=== PATIENT | female | born 1995 | race Caucasian/White ===

== ENCOUNTER 2016-09-12 10:13 | Emergency (ER) | payer BC ==
[2016-09-12 10:23] VITALS: BP 107/90
[2016-09-12] MEDS ORDERED: methylPREDNISolone 125 MG* 2 ML VIAL IM ONE (12:01)
[2016-09-12] MEDS ORDERED: Famotidine TAB* 20 MG PO ONE (12:01)
--- NOTE | 2016-09-12 12:10 | UC ---
Skin Complaint HPI - HPI Summary HPI Summary: Patient is having a allergic reaction to amoxicillin, rash that is itchy all over her body. no respiratory distres. no facial swelling. - History of Current Complaint Chief Complaint: UCSkin Time Seen by Provider: 09/12/16 11:57 Stated Complaint: SKIN COMPLAINT Hx Obtained From: Patient Hx Last Menstrual Period: 09/08/16 ?: No Onset/Duration: Sudden Onset, Lasting Hours Skin Exposure Onset/Duration: Hours Ago Timing: Constant Onset Severity: Moderate Current Severity: Moderate Pain Intensity: 4 Pain Scale Used: 0-10 Numeric Location: Diffuse, Generalized - all over Character: Swelling, Pruritus, Hives, Raised Aggravating: Nothing Alleviating: Nothing Associated Signs & Symptoms: Positive: Negative - Allergy/Home Medications Allergies/Adverse Reactions: Allergies Allergy/AdvReac Type Severity Reaction Status Date / Time No Known Allergies Allergy Verified 09/12/16 10:23 Home Medications: Home Medications Amoxicillin CAP* 500 mg PO Q12H 09/12/16 [History Confirmed 09/12/16] Norgestimate-Ethinyl Estradiol [Norgestimate/Eth... 0.18/0.215/0.25 mg-25 Mcg] 1 tab PO DAILY 09/12/16 [History Confirmed 09/12/16] Review of Systems Constitutional: Negative Skin: Rash Eyes: Negative ENT: Negative Respiratory: Negative Cardiovascular: Negative Gastrointestinal: Negative Genitourinary: Negative Motor: Negative Neurovascular: Negative Musculoskeletal: Negative Neurological: Negative Psychological: Negative All Other Systems Reviewed And Are Negative: Yes PMH/Surg Hx/FS Hx/Imm Hx Previously Healthy: Yes - Surgical History Surgical History: None - Family History Known Family History: Negative: Cardiac Disease, Hypertension, Respiratory Disease - Social History Alcohol Use: Occasionally Substance Use Type: None Smoking Status (MU): Never Smoked Tobacco Physical Exam Triage Information Reviewed: Yes Appearance: Well-Nourished, Ill-Appearing, Pain Distress Vital Signs: Initial Vital Signs Temp 99.3 F 09/12/16 10:18 Pulse 80 09/12/16 10:18 Resp 16 09/12/16 10:18 BP 107/90 09/12/16 10:18 Pulse Ox 100 09/12/16 10:18 Vital Signs Reviewed: Yes Eye Exam: Normal Eyes: Positive: Conjunctiva Clear ENT Exam: Normal ENT: Positive: Hearing grossly normal, Pharynx normal, TMs normal Dental Exam: Normal Neck exam: Normal Neck: Positive: Supple, Nontender, No Lymphadenopathy Respiratory Exam: Normal Respiratory: Positive: Chest non-tender, Lungs clear, Normal breath sounds Cardiovascular Exam: Normal Cardiovascular: Positive: RRR, No Murmur, Pulses Normal Abdominal Exam: Normal Abdomen Description: Positive: Nontender, No Organomegaly, Soft Bowel Sounds: Positive: Present Musculoskeletal Exam: Normal Musculoskeletal: Positive: Strength Intact, ROM Intact, No Edema Neurological Exam: Normal Neurological: Positive: Alert, Muscle Tone Normal Psychological Exam: Normal Skin: Positive: Other - full body hives, puritic, Course/Dx - Course Course Of Treatment: history obtained, medications reviewed, exam performed, solumedrol, famotidine given. meds prescribed. - Differential Diagnoses - Skin Complaint Differential Diagnoses: Allergic Reaction, Drug Rash, Local Allergic Reaction, Medication; Adverse Reaction, Urticaria, Viral Exanthem - Diagnoses Provider Diagnoses: allergic reaction to amoxcillin. urticaria. pruritis Discharge - Discharge Plan Condition: Stable Disposition: HOME Prescriptions: Famotidine TAB* [Pepcid TAB*] 20 mg PO DAILY #9 tab predniSONE TAB* [Deltasone TAB*] 60 mg PO DAILY #18 tab Additional Instructions: Follow the directions on the prednisone taper, take the medication early in the morning. I have prescribed 9 more days of the famotidine as well. Increase fluid intake to flush your system. Hydrocortisone, calamine will relieve itching topically. If you develope any shortness of breath or respiratory symptoms follow up at the ER immediately.
== END 2016-09-12 12:30 | disposition home or self-care (01) ==
LOC: UCCORT 10:13
DX: L50.9 Urticaria, unspecified (principal); T36.0X5A Adverse effect of penicillins, initial encounter; L29.9 Pruritus, unspecified; Y92.9 Unspecified place or not applicable
CPT/HCPCS: 96372; 99202; A9270-GY; G0463; J2930

== ENCOUNTER 2017-05-04 08:28 | Emergency (ER) | payer BC ==
[2017-05-04 08:39] VITALS: BP 121/73
--- NOTE | 2017-05-04 08:45 | UC ---
Throat Pain/Nasal Howie HPI - HPI Summary HPI Summary: SORE THROAT X 3 DAYS , + FEVER, CHILLS, BODY ACHES NO NASAL CONGESTION , NO COUGH, + BL EAR FULLNESS - History of Current Complaint Chief Complaint: UCGeneralIllness Stated Complaint: SORE THROAT Time Seen by Provider: 05/04/17 08:40 Hx Obtained From: Patient Hx Last Menstrual Period: ~04/18/17 ?: No Onset/Duration: Gradual Onset, Lasting Days - 3, Still Present Severity: Moderate Cough: None Associated Signs & Symptoms: Positive: Fever. Negative: Dysphagia, FB Sensation , Drooling, Wheezing, Hoarseness, Sinus Discomfort, Nasal Discharge, Vomiting, Rash - Allergies/Home Medications Allergies/Adverse Reactions: Allergies Allergy/AdvReac Type Severity Reaction Status Date / Time Amoxicillin Allergy Rash Verified 05/04/17 08:35 PMH/Surg Hx/FS Hx/Imm Hx Previously Healthy: Yes - Surgical History Surgical History: None - Family History Known Family History: Negative: Cardiac Disease, Hypertension, Respiratory Disease - Social History Alcohol Use: Occasionally Substance Use Type: None Smoking Status (MU): Never Smoked Tobacco - Immunization History Most Recent Influenza Vaccination: Not the 2016/2017 Season Review of Systems Constitutional: Fever, Chills, Fatigue Skin: Negative Eyes: Negative ENT: Sore Throat Respiratory: Negative Cardiovascular: Negative Gastrointestinal: Negative Genitourinary: Negative All Other Systems Reviewed And Are Negative: Yes Physical Exam Triage Information Reviewed: Yes Appearance: Well-Appearing, No Pain Distress, Well-Nourished Vital Signs: Initial Vital Signs Temp 99.3 F 05/04/17 08:33 Pulse 116 05/04/17 08:33 Resp 16 05/04/17 08:33 BP 121/73 05/04/17 08:33 Pulse Ox 100 05/04/17 08:33 Vital Signs Reviewed: Yes Eyes: Positive: Conjunctiva Clear ENT: Positive: Pharyngeal erythema, TMs normal. Negative: Nasal congestion, Nasal drainage, Tonsillar swelling, Tonsillar exudate Neck: Positive: Supple, Nontender, No Lymphadenopathy Respiratory: Positive: Chest non-tender, Lungs clear, Normal breath sounds Cardiovascular: Positive: Tachycardia Abdominal Exam: Normal Abdomen Description: Positive: Nontender, No Organomegaly Bowel Sounds: Positive: Present Throat Pain/Nasal Course/Dx - Differential Dx/Diagnosis Provider Diagnoses: PHARYNGITIS Discharge - Discharge Plan Condition: Stable Disposition: HOME Prescriptions: Azithromycin TAB* [Zithromax TAB (Z-MIGUEL) 250 mg #6 tabs] 2 tab PO .TODAY, THEN 1 DAILY #1 miguel Patient Education Materials: Pharyngitis (ED) Referrals: Non Staff,Doctor [Primary Care Provider] - Additional Instructions: FOLLOW UP WITH YOUR PCP NEEDED
== END 2017-05-04 09:07 | disposition home or self-care (01) ==
LOC: UCCORT 08:28
DX: J02.9 Acute pharyngitis, unspecified (principal); R50.9 Fever, unspecified; M79.1 Myalgia; Z88.1 Allergy status to other antibiotic agents
CPT/HCPCS: 36415; 86703; 87651; 99212; G0463

== ENCOUNTER 2017-11-16 10:47 | Emergency (ER) | payer BC ==
[2017-11-16 11:03] VITALS: BP 105/58
--- NOTE | 2017-11-16 11:17 | UC ---
Complaint Female HPI - HPI Summary HPI Summary: dysuria x 2 days + frequency , urgency , lower abdominal pain no fever, no chills, no flank pain - History Of Current Complaint Chief Complaint: UCGU Stated Complaint: URINARY COMPLAINT Time Seen by Provider: 11/16/17 10:52 Hx Obtained From: Patient Hx Last Menstrual Period: 10/28/17-11/01/17 ?: No Onset/Duration: Gradual Onset, Lasting Days - 2, Still Present Timing: Constant Severity Initially: Moderate Severity Currently: Moderate Pain Intensity: 0 Character: Burning, Cramping Aggravating Factor(s): Urination Alleviating Factor(s): Nothing Associated Signs And Symptoms: Negative: Fever, Back Pain, Vaginal Bleeding/ Discharge, Vaginal Discharge, Nausea, Vomiting(# Of Episodes =), Genital Swelling, Genital Blisters, Retained Foregin Body (Specify) - Allergies/Home Medications Allergies/Adverse Reactions: Allergies Allergy/AdvReac Type Severity Reaction Status Date / Time amoxicillin Allergy Rash Verified 11/16/17 10:55 Home Medications: Home Medications Ethinyl Estrad/Desogest(NF) [[place] 0.03/0.15 (NF)] 1 tab DAILY 11/16/17 [ History Confirmed 11/16/17] PMH/Surg Hx/FS Hx/Imm Hx Previously Healthy: Yes - Surgical History Surgical History: None - Family History Known Family History: Positive: Cardiac Disease, Hypertension Negative: Respiratory Disease Family History: Dyslipidemia - Social History Alcohol Use: Occasionally Substance Use Type: None Smoking Status (MU): Never Smoked Tobacco - Immunization History Most Recent Influenza Vaccination: Not the Season Review of Systems Constitutional: Negative Skin: Negative Eyes: Negative ENT: Negative Respiratory: Negative Cardiovascular: Negative Genitourinary: Dysuria, Frequency, Urgency Is Patient Immunocompromised?: No All Other Systems Reviewed And Are Negative: Yes Physical Exam Triage Information Reviewed: Yes Appearance: Well-Appearing, No Pain Distress, Well-Nourished Vital Signs: Initial Vital Signs Temp 98.1 F 11/16/17 10:58 Pulse 71 11/16/17 10:58 Resp 16 11/16/17 10:58 BP 105/58 11/16/17 10:58 Pulse Ox 100 11/16/17 10:58 Vital Signs Reviewed: Yes Eye Exam: Normal Eyes: Positive: Conjunctiva Clear ENT: Positive: Normal ENT inspection, Hearing grossly normal, Pharynx normal Neck: Positive: Supple, Nontender, No Lymphadenopathy Respiratory: Positive: Chest non-tender, Lungs clear, Normal breath sounds Cardiovascular: Positive: RRR, No Murmur, Pulses Normal Abdominal Exam: Normal Abdomen Description: Positive: Nontender, Soft. Negative: CVA Tenderness (R), CVA Tenderness (L), Distended, Guarding Bowel Sounds: Positive: Present Complaint Female Dx - Differential Dx/Diagnosis Provider Diagnoses: uti Discharge - Sign-Out/Discharge Documenting (check all that apply): Discharge - Discharge Plan Condition: Stable Disposition: HOME Prescriptions: Sulfamethox/Trimethoprim DS* [Bactrim DS 800/160 TAB*] 1 tab PO BID #14 tab Patient Education Materials: Urinary Tract Infection in Women (DC) Referrals: Non Staff,Doctor [Primary Care Provider] - If Needed - Billing Disposition and Condition Condition: STABLE Disposition: HOME
== END 2017-11-16 11:19 | disposition home or self-care (01) ==
LOC: UCCORT 10:47
DX: N39.0 Urinary tract infection, site not specified (principal); Z88.3 Allergy status to other anti-infective agents
CPT/HCPCS: 81003; 87077; 87086; 87186; 99212; G0463

== ENCOUNTER 2018-01-12 17:51 | Emergency (ER) | payer BC ==
[2018-01-12 18:12] VITALS: BP 126/93
--- NOTE | 2018-01-12 18:22 | UC ---
UC General HPI - HPI Summary HPI Summary: pt states she was with a efren 3 weeks ago who called her to advise he may have chlamydia from an exposure and that she should be tested as well. pt reports feeling fine. she denies and lesions, discharge or dysuria. - History of Current Complaint Chief Complaint: UCSTDScreening Stated Complaint: PERSONAL (STD TEST) Time Seen by Provider: 01/12/18 18:15 Hx Obtained From: Patient Hx Last Menstrual Period: 12/22/17 Pain Intensity: 0 Associated Signs & Symptoms: Negative: Abdominal Pain, Dysuria, Fever - Allergy/Home Medications Allergies/Adverse Reactions: Allergies Allergy/AdvReac Type Severity Reaction Status Date / Time amoxicillin Allergy Rash Verified 01/12/18 18:10 PMH/Surg Hx/FS Hx/Imm Hx Previously Healthy: Yes - Surgical History Surgical History: None - Family History Known Family History: Positive: Cardiac Disease, Hypertension Negative: Respiratory Disease Family History: Dyslipidemia - Social History Occupation: Employed Part-time, Student Lives: Alone Alcohol Use: Occasionally Substance Use Type: None Smoking Status (MU): Never Smoked Tobacco - Immunization History Most Recent Influenza Vaccination: Not the Season Vaccination Up to Date: Yes Review of Systems Constitutional: Negative Skin: Negative Eyes: Negative ENT: Negative Respiratory: Negative Cardiovascular: Negative Gastrointestinal: Negative Genitourinary: Negative Motor: Negative Neurovascular: Negative Musculoskeletal: Negative Neurological: Negative Psychological: Negative Is Patient Immunocompromised?: No All Other Systems Reviewed And Are Negative: Yes Physical Exam Triage Information Reviewed: Yes Appearance: Well-Appearing Vital Signs: Initial Vital Signs Temp 98.7 F 01/12/18 18:08 Pulse 71 01/12/18 18:08 Resp 16 01/12/18 18:08 BP 126/93 01/12/18 18:08 Pulse Ox 100 01/12/18 18:08 Vital Signs Reviewed: Yes Eyes: Positive: Conjunctiva Clear ENT: Positive: Normal ENT inspection Neck: Positive: Supple, Nontender, No Lymphadenopathy Respiratory: Positive: Lungs clear, Normal breath sounds Cardiovascular: Positive: RRR, No Murmur Abdomen Description: Positive: Nontender, No Organomegaly, Soft Bowel Sounds: Positive: Present Pelvic Exam: Positive: Other - Declined Musculoskeletal Exam: Normal Musculoskeletal: Positive: ROM Intact Neurological: Positive: Alert Psychological: Positive: Age Appropriate Behavior Skin Exam: Normal Course/Dx - Course Course Of Treatment: pt offered HIV, syphilis, GC/Chlamydia and affirm testing. she is declining all but the syphilis and GC/Chlamydia citing this was all done very recently and was negative. pelvic exam offered but declined due to lack of s/s's. tx for GC and Chlamydia offered. pt only wants tx for the Chlamydia and willseek additional tx only if she tests positive for something more. - Differential Dx - Multi-Symptom Provider Diagnoses: Chlamydia exposure Discharge - Sign-Out/Discharge Documenting (check all that apply): Discharge/Admit/Transfer - Discharge Plan Condition: Stable Disposition: HOME Patient Education Materials: Chlamydia (ED), Sexually Transmitted Diseases (ED) Referrals: [facility] [place] [facility]ERR[facility] [Outside] - 1 Day - Billing Disposition and Condition Condition: STABLE Disposition: HOME
[2018-01-12] MEDS ORDERED: Azithromycin TAB* 250 MG PO ONE (18:49)
== END 2018-01-12 19:00 | disposition home or self-care (01) ==
LOC: UCCORT 17:51
DX: Z20.2 Contact with and (suspected) exposure to infections with a predominantly sexual mode of transmission (principal); Z88.0 Allergy status to penicillin
CPT/HCPCS: 36415; 86592; 87491; 87591; 99212; A9270-GY; G0463

== ENCOUNTER 2018-02-24 18:10 | Emergency (ER) | payer BC ==
[2018-02-24 18:23] VITALS: BP 136/74
--- NOTE | 2018-02-24 18:52 | ED ---
Throat Pain/Nasal Congestion - HPI Summary HPI Summary: 22 yr old female with the complaint of sore throat. Onset for a couple of days. No drooling, no stridor, no dizziness. She does have right ear pain, and feels glands swollen in neck as well. - History of Current Complaint Chief Complaint: UCRespiratory Time Seen by Provider: 02/24/18 18:36 - Allergies/Home Medications Allergies/Adverse Reactions: Allergies Allergy/AdvReac Type Severity Reaction Status Date / Time amoxicillin Allergy Rash Verified 02/24/18 18:23 PMH/Surg Hx/FS Hx/Imm Hx Infectious Disease History: No Infectious Disease History: Denies: Traveled Outside the [place] in Last 30 Days - Family History Known Family History: Positive: Cardiac Disease, Hypertension Negative: Respiratory Disease Family History: Dyslipidemia - Social History Alcohol Use: Occasionally Substance Use Type: Reports: None Smoking Status (MU): Never Smoked Tobacco Review of Systems Positive: Fever, Chills Positive: Sore Throat, Ear Ache All Other Systems Reviewed And Are Negative: Yes Physical Exam Triage Information Reviewed: Yes Vital Signs On Initial Exam: Initial Vitals Temp Pulse Resp BP Pulse Ox 100.7 F 111 18 136/74 99 02/24/18 18:16 02/24/18 18:16 02/24/18 18:16 02/24/18 18:16 02/24/18 18:16 Vital Signs Reviewed: Yes Appearance: Positive: Well-Appearing, No Pain Distress Skin: Positive: Warm, Skin Color Reflects Adequate Perfusion Head/Face: Positive: Normal Head/Face Inspection Eyes: Positive: EOMI ENT: Positive: Pharyngeal erythema, TM red - right, Uvula midline. Negative: Tonsillar swelling, Tonsillar exudate, Muffled voice, Hoarse voice Neck: Positive: Nontender Respiratory/Lung Sounds: Positive: Clear to Auscultation, Breath Sounds Present Cardiovascular: Positive: RRR. Negative: Murmur Abdomen Description: Positive: Nontender Musculoskeletal: Positive: Strength/ROM Intact Neurological: Positive: Sensory/Motor Intact, Alert, Oriented to Person Place, Time, CN Intact II-III Psychiatric: Positive: Normal AVPU Assessment: Alert - Mcclure Coma Scale Best Eye Response: 4 - Spontaneous Best Motor Response: 6 - Obeys Commands Best Verbal Response: 5 - Oriented Coma Scale Total: 15 Diagnostics - Vital Signs Vital Signs Temp Pulse Resp BP Pulse Ox 02/24/18 18:16 100.7 F 111 18 136/74 99 - Laboratory Lab Results: Lab Results 02/24/18 Range/Units 18:28 Group A Strep Rapid Negative (Negative) Lab Statement: Any lab studies that have been ordered have been reviewed, and results considered in the medical decision making process. EENT Course/Dx - Course Course Of Treatment: 22 yrold with Right OM. Rx with Biaxin. - Diagnoses Provider Diagnoses: Otitis media, Sore throat Discharge - Sign-Out/Discharge Documenting (check all that apply): Discharge/Admit/Transfer - Discharge Plan Condition: Good Disposition: HOME Prescriptions: Clarithromycin TAB* [Biaxin 500 MG TAB*] 500 mg PO BID #20 tab Patient Education Materials: Ear Infection (ED) Referrals: Non Staff,Doctor [Primary Care Provider] - [facility] [place] [facility] [place]Outside] - Billing Disposition and Condition Condition: GOOD Disposition: Home
[2018-02-24] MEDS ORDERED: Ibuprofen TAB* 400 MG PO ONE (18:53)
[2018-02-24] MEDS ORDERED: Clarithromycin TAB* 500 MG PO ONE (18:53)
== END 2018-02-24 19:09 | disposition home or self-care (01) ==
LOC: UCCORT 18:10
DX: H66.91 Otitis media, unspecified, right ear (principal); J02.9 Acute pharyngitis, unspecified; Z88.0 Allergy status to penicillin
CPT/HCPCS: 87651; 99212; A9270-GY; G0463

== ENCOUNTER 2018-11-29 12:10 | Emergency (ER) | payer BC ==
[2018-11-29 12:28] VITALS: BP 128/74
--- NOTE | 2018-11-29 12:39 | UC ---
General HPI - HPI Summary HPI Summary: SORE THROAT FOR ABOUT 1 WEEK. NOW SOME COUGH AND CONGESTION. NO CP, SOB, ASTHMA OR FEVER. PRIOR HX MONO. - History of Current Complaint Chief Complaint: UCRespiratory Stated Complaint: THROAT COMPLAINT Time Seen by Provider: 11/29/18 12:20 Hx Obtained From: Patient Hx Last Menstrual Period: 11/24/18 Timing: Constant Pain Intensity: 2 Associated Signs & Symptoms: Negative: Chest Pain - Allergy/Home Medications Allergies/Adverse Reactions: Allergies Allergy/AdvReac Type Severity Reaction Status Date / Time amoxicillin Allergy Rash Verified 11/29/18 12:22 PMH/Surg Hx/FS Hx/Imm Hx Previously Healthy: Yes - Surgical History Surgical History: None - Family History Known Family History: Positive: Cardiac Disease, Hypertension Negative: Respiratory Disease Family History: Dyslipidemia - Social History Occupation: Employed Full-time Alcohol Use: Occasionally Substance Use Type: None Smoking Status (MU): Never Smoked Tobacco - Immunization History Most Recent Influenza Vaccination: Not the 2016/2017 Season Vaccination Up to Date: Yes Review of Systems All Other Systems Reviewed And Are Negative: Yes ENT: Positive: Sore Throat Respiratory: Positive: Cough Physical Exam Triage Information Reviewed: Yes Appearance: Well-Appearing Vital Signs: Initial Vital Signs Temp 98 F 11/29/18 12:24 Pulse 69 11/29/18 12:24 Resp 16 11/29/18 12:24 BP 128/74 11/29/18 12:24 Pulse Ox 100 11/29/18 12:24 Vital Signs Reviewed: Yes Eyes: Positive: Conjunctiva Clear ENT: Positive: Pharyngeal erythema - SLIGHT, TMs normal, Uvula midline. Negative: Nasal congestion, Nasal drainage, Trismus, Muffled voice, Hoarse voice Neck: Positive: Supple, Tenderness @ - PERITONSILAR NODES, Enlarged Nodes @ - PERTIONSILAR Respiratory: Positive: Lungs clear, Normal breath sounds, No respiratory distress Cardiovascular: Positive: RRR, No Murmur Abdomen Description: Positive: Nontender Bowel Sounds: Positive: Present Musculoskeletal: Positive: ROM Intact Neurological: Positive: Alert Psychological: Positive: Age Appropriate Behavior Skin Exam: Normal Skin: Negative: Rashes Course/Dx - Course Course Of Treatment: RAPID STREP=NEG. - Differential Dx - Multi-Symptom Differential Diagnoses: Other - NON TOXIC. NO CONCERN FOR PERITONSIL/PHARYNGEAL ABSCESS. NO CONCERN FOR PNEUMONIA. RAPID STREP IS NEG AND PRIOR HX MONO MAKING THAT UNLIKELY. - Diagnoses Provider Diagnosis: Bronchitis, Pharyngitis Discharge - Sign-Out/Discharge Documenting (check all that apply): Patient Departure All imaging exams completed and their final reports reviewed: No Studies - Discharge Plan Condition: Stable Disposition: HOME Patient Education Materials: Acute Bronchitis (ED), Pharyngitis (ED) Forms: *Work Release Referrals: STEPHANIE Gonsalez [Medical Doctor] - Additional Instructions: FOLLOW UP IF NOT BETTER THIS WEEK OR SOONER IF WORSE. - Billing Disposition and Condition Condition: STABLE Disposition: Home
== END 2018-11-29 12:58 | disposition home or self-care (01) ==
LOC: UCCORT 12:10
DX: J40 Bronchitis, not specified as acute or chronic (principal); J02.9 Acute pharyngitis, unspecified; Z88.0 Allergy status to penicillin
CPT/HCPCS: 87651; 99211; G0463